=== PATIENT | male | born 1975 | race Caucasian/White ===

== ENCOUNTER 2018-12-27 16:35 | Emergency (ER) | payer SELFPAY ==
--- NOTE | 2018-12-27 17:27 | ULT ---
US Venous Doppler Lt Unilat History: Leg pain. Comparison: None. Findings: Real-time grayscale, color, and spectral analysis of the left lower extremity venous system was performed. The common femoral, femoral, proximal portions greater saphenous and deep femoral veins as well as the popliteal and posterior tibial veins were interrogated. Normal flow, augmentation, and compression within the common femoral and femoral veins. There is thro mbosis of the posterior tibial vein and popliteal vein. Impression: Deep venous thrombosis of the popliteal and posterior tibial veins.
[2018-12-27] MEDS ORDERED: Rivaroxaban 10 MG TAB ONE (18:10)
== END 2018-12-27 18:49 | disposition home or self-care (01) ==
LOC: SCSER 16:35
DX: I82.432 Acute embolism and thrombosis of left popliteal vein (principal); I82.442 Acute embolism and thrombosis of left tibial vein

== ENCOUNTER 2019-04-13 16:03 | Outpatient (CLI) | payer OTHER ==
--- NOTE | 2019-04-13 17:32 | ULT ---
DOPPLER VENOUS ULTRASOUND OF THE LEFT LOWER EXTREMITY: 04/13/19 INDICATION: Pain within the left leg. TECHNIQUE: Saavedra scale, color Doppler, and vascular duplex with spectral analysis was performed of the deep venou s structures of the left lower extremity. The common femoral vein, superficial femoral vein, poplitea l vein, posterior tibial vein, proximal greater saphenous, and proximal profunda veins were assessed bilaterally. COMPARISON: Prior DVT ultrasound dated 12/27/18. FINDINGS: There has been improved in the extent of the thrombus present at the left popliteal and posterior tib ial veins. Chronic eccentrically placed partially occlusive thrombus is now present within the left p osterior tibial vein with much improved flow within the left posterior tibial vein and left popliteal vein. The remaining segments demonstrate normal compression, flow and augmentation. 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 There is improvement in flow present in the left posterior tibial and left popliteal vein when compared to the prior. Findings were discussed with the patient prior to them leaving the imaging center. POS: OFF
== END 2019-04-13 16:04 | disposition home or self-care (01) ==
LOC: BICULT 16:03
PROVIDERS: ATTEND Family Medicine
DX: M79.605 Pain in left leg (principal); I82.532 Chronic embolism and thrombosis of left popliteal vein; I82.542 Chronic embolism and thrombosis of left tibial vein

== ENCOUNTER 2023-03-01 17:00 | Outpatient (CLI) | payer SELFPAY | END 2023-03-01 17:01 | disposition home or self-care (01) | LOC: SLEEPLAB 17:00 | PROVIDERS: ATTEND Family Medicine | DX: G47.33 Obstructive sleep apnea (adult) (pediatric) (principal); R53.83 Other fatigue | CPT/HCPCS: 95800 ==